=== PATIENT | female | born 1965 | race Caucasian/White ===

== ENCOUNTER 2017-04-27 23:00 | Inpatient (IN) | payer OTHER ==
[~2017-04-27] VITALS: Ht 165.1 cm; Wt 70.8 kg
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
--- NOTE | ~2017-04-27 | CO ---
Unit #: [id number] #: [id number] Patient: JEFF NUNEZ [id number] [place] [address] [id number] I MR#: [id number] NAME: JEFF NUNEZ ROOM: P205 Age: 52 Sex: F Admission Date: 04/28/2017 : 1965 Attending Physician: Shan Prescott M.D. Primary Care Physician: Primary Care Physician No Consultation Date: 04/28/2017 CONSULTATION REPORT JOHN Cruz is a 52-year-old admitted to [address] [place] [address]. She was seen for admission H and P on 04/28/2017. Please see H and P dated 04/28/2017 for complete exam, to include condition of her skin. At time of admission, she had no rashes or lesions noted. She had very slight redness to the left lower extremity stump. Skin is intact. PLAN She can use see lotion on the unit for any skin dryness. No further or special Rx required for the left lower extremity stump. Dictated by... Ivis Grande P.A.-C. for Macarena Reyez/bradley TD: 04/30/2017 00:59 JOB #: [id number] CONSULTATION REPORT Page 1 of 1 X Ivis Grande CONSULTATION REPORT
--- NOTE | ~2017-04-27 | DS ---
Unit #: [id number] #: [id number] Patient: JEFF NUNEZ [id number] [facility] [address] [place] [address] [id number] I MR#: [id number] NAME: JEFF NUNEZ ROOM: P205 Age: 52 Sex: F Admission Date: 04/28/2017 : 1965 Discharge Date: 05/01/2017 Attending Physician: Shan Prescott M.D. Primary Care Physician: Primary Care Physician No DISCHARGE SUMMARY REASON FOR ADMISSION Depression and suicidal ideation. DIAGNOSTIC STUDIES Laboratory data, glucose 174, total protein 5.3. HOSPITAL COURSE The patient was admitted to inpatient unit on April 28 and discharged on May 01, 2017. The patient was treated on the inpatient unit with group therapy, individual therapy, structured milieu. The patient was responsive to treatment and showed improvement. The patient was discharged with the plan to follow up in outpatient program. DISCHARGE DIAGNOSES [place] I Schizoaffective disorder, bipolar type, F25.9. Posttraumatic stress disorder, chronic, F43.12. Anxiety disorder, NOS, F40.01. [place] II Deferred. [place] III Prosthetic right leg. Low blood pressure. Diabetes mellitus. Hypothyroidism. Left BKA. Hysterectomy. Bowel resection, February 2017. [place] IV Psychosocial stressor. [place] V INSTRUCTIONS TO PATIENT The patient is to follow up in outpatient clinic as well as social work msw. DISCHARGE MEDICATIONS 1. Cymbalta 30 mg daily for depression 2. Vistaril 50 mg three times a day for anxiety 3. Latuda 20 mg daily for mood stabilization 4. The patient is also on Clozaril 50 mg three times a day for psychosis 5. Glucophage 500 mg daily before supper for diabetes 6. Claritin 10 mg daily for allergies 7. Estrace 0.5 mg daily for supplement 8. Synthroid 0.05 mg daily for hypothyroidism CONDITION AT DISCHARGE Unit #: [id number] #: [id number] Patient: JEFF NUNEZ The patient is pleasant and cooperative, denied any psychotic symptoms or any suicidal ideation. PROGNOSIS Guarded. DIET AND ACTIVITY As tolerated. Dictated by... Macarena Hooker/taj TD: 05/02/2017 05:34 JOB #: [id number] DISCHARGE SUMMARY Page 1 of 1 X Shan Prescott MD DISCHARGE SUMMARY
--- NOTE | ~2017-04-27 | PN ---
Unit #: [id number] #: [id number] Patient: JEFF NUNEZ [id number] [facility] [address] [place] [address] [id number] I MR#: [id number] NAME: JEFF NUNEZ ROOM: P205 Age: 52 Sex: F Admission Date: 04/28/2017 : 1965 Attending Physician: Shan Prescott M.D. Admitting Physician: Shan Prescott M.D. Primary Care Physician: Primary Care Physician Carmen POLANCO PROGRESS NOTES DATE OF SERVICE 04/29/2017 DISCUSSION Ms. Cruz is a 52-year-old female seen on 04/29/2017. Patient interviewed, chart reviewed, I obtained information from nursing staff. Patient reports that mood is getting better, decrease in suicidal ideation, now able to participate in group but still sad, dysphoric. No side effect from medication. COMPLETE REVIEW OF SYSTEMS Unremarkable. MENTAL STATUS EXAMINATION GENERAL APPEARANCE: Patient dressed casually. ATTENTION SPAN AND CONCENTRATION: Fair. Oriented in time, place and person. MOOD AND AFFECT: Labile. SPEECH: Monotone. THOUGHT PROCESS: [place]. Patient denied any thoughts of harming self or others. RECENT AND REMOTE MEMORY: Poor. INSIGHT AND JUDGMENT: Poor. DIAGNOSIS Schizoaffective disorder, bipolar type ASSESSMENT/PLAN Advised to continue with current medication. If needed, consider further adjustment in medication. Dictated by... Macarena Hooker/jessica TD: 04/30/2017 21:24 JOB #: [id number] Unit #: [id number] #: [id number] Patient: JEFF NUNEZ [facility] PROGRESS NOTES Page 1 of 1 X Shan Prescott MD X PROGRESS NOTE
--- NOTE | ~2017-04-27 | PN ---
Unit #: [id number] #: [id number] Patient: JEFF NUNEZ [id number] [facility] [address] [place] [address] [id number] I MR#: [id number] NAME: JEFF NUNEZ ROOM: P205 Age: 52 Sex: F Admission Date: 04/28/2017 : 1965 Attending Physician: Shan Prescott M.D. Admitting Physician: Shan Prescott M.D. Primary Care Physician: Primary Care Physician Carmen POLANCO PROGRESS NOTES DATE OF SERVICE 04/30/2017 DISCUSSION Ms. Cruz is a 52-year-old female seen on 04/30/2017. Patient interviewed, chart reviewed, I obtained information from nursing staff. Patient compliant, cooperative, mood sad, dysphoric but reports mood is getting better. Denied any suicidal ideation. COMPLETE REVIEW OF SYSTEMS Unremarkable. MENTAL STATUS EXAMINATION GENERAL APPEARANCE: Patient dressed casually sitting comfortably in a wheelchair. ATTENTION SPAN AND CONCENTRATION: Fair. Oriented in time, place and person. MOOD AND AFFECT: Labile. SPEECH: Monotone. THOUGHT PROCESS: [place]. Patient denied any suicidal or homicidal ideation, denied any psychotic symptom but somewhat guarded. RECENT AND REMOTE MEMORY: Poor. INSIGHT AND JUDGMENT: Poor. DIAGNOSIS Schizoaffective disorder ASSESSMENT/PLAN Advised to continue with current medication and therapeutic protocol. If needed, consider further adjustment of medication. Dictated by... Macarena Hooker/jessica TD: 05/01/2017 03:45 JOB #: [id number] Unit #: [id number] #: [id number] Patient: JEFF NUNEZ [facility] PROGRESS NOTES Page 1 of 1 X Shan Prescott MD X PROGRESS NOTE
[2017-04-28 09:38] LABS: BASOPHIL% 0.6 % (0-2.5); EOSINOPHIL% 0.4 % (0.0-7.0); HEMATOCRIT 38.4 % (35.0-45.0); HEMOGLOBIN 12.7 gm/dL (12.0-16.0); LYMPHOCYTE# 2.3 X10e3 (1.0-3.5); LYMPHOCYTE% 32.1 % (17.0-45.0); MEAN CELL VOLUME 92.2 FL (83-96); MEAN CORPUSCULAR HEMOGLOBIN 30.4 PG (28-34); MEAN PLATELET VOLUME 7.5 FL (6.5-11.5); MONOCYTE# 0.7 X10e3 (0-1.0); MONOCYTE% 9.9 % (3.0-12.0); NEUTROPHIL# 4.1 X10e3 (1.5-7.1); PLATELET COUNT 402 X10e3 (140-420); RED BLOOD COUNT 4.16 X10e (3.90-5.30); RED CELL DISTRIBUTION WIDTH 12.5 % (11.0-15.5); WHITE BLOOD COUNT 7.2 X10e3 (4.0-10.5)
[2017-04-28 09:44] LABS: DIFF IND NO
[2017-04-28 10:26] LABS: ALBUMIN SERUM 3.2 g/dL (3.5-5.0); BILIRUBIN,TOTAL 0.2 mg/dL (0.2-2.0); BUN/CREATININE RATIO 8.57; CALCIUM SERUM 8.4 mg/dL (8.4-10.2); CREATININE SERUM 0.7 mg/dL (0.6-1.4); GLOM FILT RATE Estimated 98.2 mL/min (>60); PROTEIN TOTAL SERUM 5.3 g/dL (6.0-8.3)
[2017-04-28 12:27] LABS: URINE APPEARANCE CLEAR; URINE BILIRUBIN NEG (NEG); URINE BLOOD NEG (NEG); URINE COLOR YELLOW; URINE GLUCOSE NEG (NEG); URINE KETONE NEG (NEG); URINE LEUKOCYTE ESTERASE NEG (NEG); URINE NITRATE NEG (NEG); URINE PROTEIN NEG (NEG); URINE SPECIFIC GRAVITY 1.011 (1.003-1.035); URINE UROBILINOGEN 0.2 MG/DL (NEG)
[2017-04-28 12:40] LABS: AMPHETAMINE NEG (NEG); BARBITURATES NEG (NEG); BENZODIAZEPINES NEG (NEG); COCAINE NEG (NEG); MARIJUANA NEG (NEG); OPIATES NEG (NEG); TRICYCLIC ANTIDEPRESSANTS NEG (NEG); U METHADONE NEG (NEG)
== END 2017-05-01 15:39 | DRG 885 ==
LOC: P2S 04-28 03:38
PROVIDERS: Psychiatry & Neurology Psychiatry
DX: F25.9 Schizoaffective disorder, unspecified (principal); E11.9 Type 2 diabetes mellitus without complications; E03.9 Hypothyroidism, unspecified; Z88.0 Allergy status to penicillin; Z88.2 Allergy status to sulfonamides; Z90.710 Acquired absence of both cervix and uterus; F41.9 Anxiety disorder, unspecified
CPT/HCPCS: 80053; 80307; 81003; 82947; 85025